=== PATIENT | male | born 1995 | race Two or more races ===

== ENCOUNTER 2021-01-09 10:55 | Outpatient (REF) | payer OTHER, SELFPAY ==
[2021-01-09 11:49] LABS: Hematocrit 41.9 % (42-52); Hemoglobin 14.4 g/dl (14.0-18.0); Mean Corpuscular HGB Conc 34.4 g/dl (31.0-36.0); Mean Corpuscular Hemoglobin 28.1 pg (27.0-33.0); Mean Corpuscular Volume 81.7 fL (80-98); Mean Platelet Volume 10.2 fL (9.4-12.4); Platelet Count 259 X10*3/uL (160-400); Red Blood Count 5.13 X10*6/uL (4.60-5.80); Red Cell Distribution Width 12.8 % (11.0-16.0); White Blood Count 5.1 X10*3/uL (4.8-10.8)
[2021-01-09 11:56] LABS: Estimated Average Glucose 105 mg/dL; Hemoglobin A1c % 5.3 %
[2021-01-09 12:34] LABS: TSH reflex Free T4 1.26 uIU/mL (0.32-4.0)
[2021-01-09 12:52] LABS: Alanine Aminotransferase 37 U/L (0-40); Albumin Level 4.5 g/dL (3.5-5.0); Alkaline Phosphatase 64 U/L (39-117); Anion Gap 12 (12-20); Aspartate Amino Transferase 20 U/L (5-37); Bilirubin Total 0.5 mg/dL (0.0-1.0); Blood Urea Nitrogen 15 mg/dL (9-16); Calcium 9.6 mg/dL (8.4-10.2); Carbon Dioxide 26 mmol/L (22-29); Chloride 105 mmol/L (96-108); Cholesterol 180 mg/dL; Estimated Glomerular Filt Rate > 60; Glucose Fasting 94 mg/dL (60-99); HDL Cholesterol 27 mg/dL; LDL Cholesterol Calculated 114 mg/dl; Sodium 138 mmol/L (135-145); Total Protein 7.2 g/dL (6.5-8.0); Triglycerides 196 mg/dL
== END 2021-01-09 10:56 | disposition home or self-care (01) ==
LOC: HO.LAB 10:55
PROVIDERS: PCP Physician Assistant; Visit Provider Physician Assistant
DX: I10 Essential (primary) hypertension (principal)
CPT/HCPCS: 36415; 80053; 80061; 83036; 84443; 85027

== ENCOUNTER 2021-12-07 23:47 | Emergency (ER) | payer OTHER, SELFPAY ==
--- NOTE | ~2021-12-07 | XR_ITS ---
EXAMINATION: RIGHT HAND 3 VIEWS AND RIGHT WRIST 4 VIEWS CLINICAL INFORMATION: Pain status post injury COMPARISON: None TECHNIQUE: As above FINDINGS: Joint spaces preserved. No deformity. First digit intact. Scaphoid intact. No focal lesion. XR/XR finger RT min 2V IMPRESSION: No fracture.
--- NOTE | ~2021-12-07 | XR_ITS ---
EXAMINATION: RIGHT HAND 3 VIEWS AND RIGHT WRIST 4 VIEWS CLINICAL INFORMATION: Pain status post injury COMPARISON: None TECHNIQUE: As above FINDINGS: Joint spaces preserved. No deformity. First digit intact. Scaphoid intact. No focal lesion. XR/XR wrist RT min 3V IMPRESSION: No fracture.
[2021-12-07 23:58] VITALS: BP 150/89; PULSE 53; RESP 18; TEMP 36.7; O2SAT 96; BMI 37.0
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
[2021-12-08] MEDS: Ibuprofen 600 MG TABLET PO (00:29)
== END 2021-12-08 01:01 | disposition home or self-care (01) ==
PROVIDERS: Emergency Provider Emergency Medicine Emergency Medical Services
DX: S63.501A Unspecified sprain of right wrist, initial encounter (principal); S63.601A Unspecified sprain of right thumb, initial encounter; Y33.XXXA Other specified events, undetermined intent, initial encounter; Y93.9 Activity, unspecified; Y92.9 Unspecified place or not applicable; Y99.0 Civilian activity done for income or pay; Z79.899 Other long term (current) drug therapy
CPT/HCPCS: 29130; 73110; 73140; 99283

== ENCOUNTER → 2021-12-12 10:55 | Outpatient (BNVA) | payer OTHER, SELFPAY | PROVIDERS: Visit Provider Internal Medicine | DX: Z02.89 Encounter for other administrative examinations (principal); S63.602A Unspecified sprain of left thumb, initial encounter; X58.XXXA Exposure to other specified factors, initial encounter | CPT/HCPCS: 99202 ==

== ENCOUNTER 2021-12-30 23:41 | Emergency (ER) | payer OTHER, SELFPAY ==
--- NOTE | ~2021-12-30 | XR_ITS ---
EXAMINATION: X-RAY RIGHT HAND/WRIST CLINICAL INFORMATION: Injury. COMPARISON: Radiograph of the right wrist dated from 12/08/2021. TECHNIQUE: 4 views of the right hand/wrist were obtained. XR/XR hand wrist RT FINDINGS/IMPRESSION: No acute fractures or malalignment. Normal appearance of the soft tissues. No unexpected radiopaque foreign bodies.
[2021-12-31 01:16] VITALS: BP 156/104; PULSE 58; RESP 16; TEMP 36.1; O2SAT 98; BMI 36.1
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
== END 2021-12-31 01:29 | disposition home or self-care (01) ==
LOC: HO.ED 12-31 01:20
PROVIDERS: Emergency Provider Emergency Medicine Emergency Medical Services; PCP Physician Assistant
DX: S63.601A Unspecified sprain of right thumb, initial encounter (principal); Y35.891A Legal intervention involving other specified means, law enforcement official injured, initial encounter; Y93.89 Activity, other specified; Y92.149 Unspecified place in prison as the place of occurrence of the external cause; Y99.0 Civilian activity done for income or pay
CPT/HCPCS: 73110; 73130; 99283

== ENCOUNTER 2022-01-08 10:15 | Outpatient (REF) | payer OTHER, SELFPAY ==
--- NOTE | ~2022-01-08 | XR_ITS ---
EXAMINATION: XR HAND, RIGHT CLINICAL INFORMATION: Pain in the right hand. COMPARISON: Radiograph of the right wrist dated from 12/31/2021. TECHNIQUE: 5 views of the right hand. FINDINGS: The bones and soft tissues are normal. No fracture. Alignment is anatomic. Joint spaces are maintained. No erosions or soft tissue calcifications. XR/XR hand RT min 3V IMPRESSION: Normal right hand. If symptoms persist, consider correlation with a different imaging modalities such as CT or MR.
== END 2022-01-08 10:16 | disposition home or self-care (01) ==
LOC: HO.HOSX 10:15
PROVIDERS: Visit Provider Orthopaedic Surgery
DX: M79.641 Pain in right hand (principal); S63.641A Sprain of metacarpophalangeal joint of right thumb, initial encounter; Y35.811A Legal intervention involving manhandling, law enforcement official injured, initial encounter; Y93.89 Activity, other specified; Y92.143 Cell of prison as the place of occurrence of the external cause; Y99.0 Civilian activity done for income or pay; I10 Essential (primary) hypertension
CPT/HCPCS: 73130; 99202

== ENCOUNTER → 2022-01-15 09:42 | Outpatient (BNVA) | payer OTHER, SELFPAY | PROVIDERS: PCP Physician Assistant; Visit Provider Orthopaedic Surgery | DX: S63.641D Sprain of metacarpophalangeal joint of right thumb, subsequent encounter (principal) | CPT/HCPCS: 29075; 99212 ==

== ENCOUNTER → 2022-01-27 10:06 | Outpatient (BNVA) | payer OTHER, SELFPAY | PROVIDERS: Visit Provider Physician Assistant | DX: S63.641A Sprain of metacarpophalangeal joint of right thumb, initial encounter (principal) | CPT/HCPCS: 29085; 99212 ==

== ENCOUNTER → 2022-02-07 11:57 | Outpatient (BNVA) | payer OTHER, SELFPAY | PROVIDERS: Visit Provider Orthopaedic Surgery | DX: S63.641D Sprain of metacarpophalangeal joint of right thumb, subsequent encounter (principal) | CPT/HCPCS: 99212 ==

== ENCOUNTER → 2022-02-27 10:55 | Outpatient (BNVA) | payer OTHER, SELFPAY | PROVIDERS: Visit Provider Physician Assistant | DX: S63.641A Sprain of metacarpophalangeal joint of right thumb, initial encounter (principal) | CPT/HCPCS: 99212 ==

== ENCOUNTER 2023-03-23 02:58 | Emergency (ER) | payer OTHER, SELFPAY ==
--- NOTE | ~2023-03-23 | XR_ITS ---
EXAMINATION: XR HAND, RIGHT CLINICAL INFORMATION: Right hand trauma COMPARISON: 01/08/2022 TECHNIQUE: PA, lateral, and oblique views of the right hand. FINDINGS: No fracture or dislocation. Alignment is anatomic. Joint spaces are maintained. No cortical disruption. The soft tissues are unremarkable. XR/XR hand RT min 3V IMPRESSION: No fracture or malalignment.
[2023-03-23 03:11] VITALS: BP 150/98; PULSE 73; RESP 16; TEMP 36.6; O2SAT 96; BMI 36.2
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
--- NOTE | 2023-03-23 04:36 | PC.NURSE ---
pt calm and cooperative. medart operator placed thumb spica splint. cms intact. pt ambulatory at discharge. pt provided with discharge packet and work note. pt verbalized understanding of discharge plan
== END 2023-03-23 04:39 | disposition home or self-care (01) ==
PROVIDERS: Emergency Provider Emergency Medicine; PCP Physician Assistant
DX: M65.4 Radial styloid tenosynovitis [de Quervain] (principal); M79.641 Pain in right hand
CPT/HCPCS: 73130; 99283; 99284

== ENCOUNTER 2023-03-31 10:18 | Outpatient (AMB) | payer OTHER, SELFPAY ==
[2023-03-31 10:31] VITALS: BMI 36.2
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
== END 2023-03-31 11:42 | disposition home or self-care (01) ==
PROVIDERS: PCP Physician Assistant; Visit Provider Orthopaedic Surgery
DX: S60.221A Contusion of right hand, initial encounter (principal)
CPT/HCPCS: 99213

== ENCOUNTER → 2023-03-31 10:18 | Outpatient (BNVA) | payer OTHER, SELFPAY | PROVIDERS: PCP Physician Assistant; Visit Provider Orthopaedic Surgery | DX: S60.221A Contusion of right hand, initial encounter (principal); X50.3XXA Overexertion from repetitive movements, initial encounter; Y93.89 Activity, other specified; Y92.149 Unspecified place in prison as the place of occurrence of the external cause; Y99.0 Civilian activity done for income or pay | CPT/HCPCS: 99212 ==

== ENCOUNTER 2023-05-04 10:00 | Outpatient (RCR) | payer OTHER, SELFPAY ==
--- NOTE | 2023-04-08 11:16 | MHC.OT.EP ---
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 He continued to have high pain into the next day and went to the ED 12/07/21 for assessment. He was placed in thumb spica orthosis and referred to occupational health and outpatient orthopedic services. He had been doing well for the past year, but returned to ED and outpatient ortho after reinjury to thumb 03/23/23. He has now been referred to OT for continued care of contusion to right thumb base. 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 Thank you once again for your referral.
--- NOTE | 2023-05-04 10:48 | MHC.OT.OP ---
[address] [phone] F: [phone] Occupational Therapy Progress Note Patient Name: Pierre Wood Diagnosis: Right hand contusion Date of Evaluation: 04/08/23 Treatments to Date: 5 Subjective: Its been ok but the pain comes back. Pain Score: 6 Pain Location: Right thenar area (constant pain) Objective Measures: Gross Grasp R 100 L 110 Thumb ROM MCP 50 IP 65 Status: Progressing Assessment: Pierre is about 6 weeks s/p contusion injury to right thumb. He has had prior injury to this thumb last year with full recovery, but now continues to have constant moderate pain in base of thumb, increases w/ heavier tasks. He has been wearing thumb spica but more recently is finding uncomfortable. Overall he has good use of thumb for FMC tasks and has good range and hand strength, primary limitation continues to be pain. We have progressed to light strengthening of hand and pt is mindful of limiting heavy work and avoiding activities that increase pain. Short Term Goals: Ind w/ activity modifications (met) Ind w/ orthosis wear (met) Ind w/ use of ice appropriately (met) Copy And Print Associate Goals: Ind w/ use of heat as needed as warm up for activity/range or for comfort (met) Gross grasp 80lb w/ minimal pain (met) Pt to report ease w/ opening containers and heavier tasks at home Progress to resisted thumb exercises (met) Frequency and Duration: The patient will be seen 2/x wk for 2 weeks Treatment Plan: Therapeutic Exercise Therapeutic Activity Home Exercise Program Splinting Patient Education Edema Control ADL Training Ultrasound Iontophoresis Paraffin Fluidotherapy MHP Cold Packs Joint Mobilization Soft Tissue Mobilization Kinesiotaping Dexamethasone Electronically Signed By: January Romero OTR/L GHASSAN
--- NOTE | 2023-06-09 11:29 | MHC.OT.DC ---
[address] [phone] F: [phone] Occupational Therapy Discharge Note Patient Name: Pierre Wood Provider: Dr Jessie Montalvo Diagnosis: Right hand contusion Date of Evaluation: 04/08/23 Date of Discharge: 06/09/23 Treatments to Date: 5 Cancellations to Date: 1 Discharge Status: Independent with HEP Discharge Summary: Pierre was referred to OT s/p contusion to right thumb. He was last seen in OT about one month ago and was noted to have continued pain in base of thumb, increasing w/ heavier work. He has been wearing thumb spica but more recently is finding uncomfortable. Overall he has good use of thumb for FMC tasks and has good range and hand strength, primary limitation continues to be pain. We have progressed to light strengthening of hand and pt is mindful of limiting heavy work and avoiding activities that increase pain. He was seen in ortho office and has been been to work, but has not followed up for any further OT visits. I recommend he cont thumb spica for thumb pain as needed and progress as able to range and strengthening with mindfulness of joint protection and activity modification. Electronically Signed By: REAGAN Michel/Chan FERRELL Reviewed/agree with student documentation: Yes Therapist: REAGAN Michel/Chan FERRELL Please Sign and return to therapist, thank you for your referral.
== END 2023-06-09 11:30 | disposition home or self-care (01) ==
LOC: HO.OT 10:00
PROVIDERS: PCP Physician Assistant; Visit Provider Orthopaedic Surgery
DX: S60.221D Contusion of right hand, subsequent encounter (principal)
CPT/HCPCS: 97033; 97110; 97140; 97165

== ENCOUNTER 2023-05-13 09:39 | Outpatient (AMB) | payer OTHER, SELFPAY ==
--- NOTE | 2023-05-13 09:43 | A.OFFVIS_ITS ---
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 Patient reports that he continues to have shocking pain that radiates into his palm. Complaints of numbness in his palm. He has completed OT. 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 He continues to have shocking pain in his thumb which radiates to his palm. He also c/o numbness in his palm. He is completed with occupational therapy. [facility] Medical History HTN (hypertension) Surgical History History of repair of ACL Family History Father No problems noted. Mother No problems noted. 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 No swelling. Mild tenderness over the radial styloid. Positive Cat?s. No pain with CMC grind. is able to make a full fist and fully extend all digits. NVI. Assessment & Plan Assessment & Plan (1) De Quervain's syndrome (tenosynovitis): Code(s): M65.4 - Radial styloid tenosynovitis [de Quervain] Plan An EMG/nerve conduction study has been ordered to further evaluate the etiology of his numbness. I did explain that if this is negative, it could be some irritation of nerve from his injury which would resolve with time. He will return to work on 05/19/23 full duty without restrictions and I will see him back once the EMG is complete. Orders: Orders NE electromyogram (EMG) Today R20.0 - Anesthesia of skin, R20.2 - Paresthesia of skin NE nerve conduction velocity Today R20.0 - Anesthesia of skin, R20.2 - Paresthesia of skin Patient Instructions: Scribed for Sangeeta Landa PA-C, by Hao Carter emergency medical tech, on 05/13/2023 at 9:45 AM EST. I, Sangeeta Landa PA-C, have personally reviewed and agree with the information entered by the scribe. Coding Level of Care Code Est Pt Level 3 (01819) Diagnoses De Quervain's syndrome (tenosynovitis) M65.4
[2023-05-13 09:46] VITALS: BMI 36.2
== END 2023-05-13 10:00 | disposition home or self-care (01) ==
PROVIDERS: PCP Physician Assistant; Visit Provider Physician Assistant
DX: M65.4 Radial styloid tenosynovitis [de Quervain] (principal)
CPT/HCPCS: 99213

== ENCOUNTER → 2023-05-13 09:39 | Outpatient (BNVA) | payer OTHER, SELFPAY | PROVIDERS: PCP Physician Assistant; Visit Provider Physician Assistant | DX: M65.4 Radial styloid tenosynovitis [de Quervain] (principal) | CPT/HCPCS: 99212 ==

== ENCOUNTER 2023-07-13 11:15 | Outpatient (AMB) | payer OTHER, SELFPAY ==
--- NOTE | 2023-07-13 11:18 | A.OFFPC_ITS ---
Vital Signs 07/13/23 11:19 Height 5 ft 9 in Weight 249 lb BMI 36.8 BP 150/100 H Blood Pressure Location Lt brachial Position Sitting Pulse 60 Pulse Source Pulse Oximeter Pulse Oximetry (%) 92 Oxygen Delivery Method Room Air Intake Visit Reasons: Discuss personal matters Advanced Registered Nurse Required: No Accompanied by: Self / Same As Patient Allergies No Known Allergies Allergy (Verified 07/13/23 11:21) Dental Screening Dental Screen Date: 07/13/23 Did you have a dental visit in the last 12 months?: Yes Did you have a dental problem in the last 6 months where you did not have access to dental care?: No Was dental information given to patient?: Patient has dentist HPI HPI Comments History of Present Illness Details 28-year-old male past medical history si gnificant for hypertension and obesity. Patient of Guillermo Max, last seen 2 years ago presents today for follow-up. Patient reports has not been on his blood pressure medication in over a year. Blood pressure elevated office today 150/100 patient denies any headaches or vision changes, or chest pain. Will re-initiate patient on his amlodipine 5 mg daily prescription sent to patient's pharmacy. Patient advised to follow low-salt diet. Patient also requesting to have routine STI screening completed, as well as routine blood work. Orders entered. Patient also reports around 8 years ago had a bout of erectile dysfunction and he was prescribed a medication for this that helped get him over the hump and he was able to perform. Patient reports he is now with a new female partner and he is unsure if it is just nervous but he is unable to get/sustain a reaction. Will send sildenafil to use as needed for this. [facility] Medical History HTN (hypertension) Surgical History History of repair of ACL Family History Father No problems noted. Mother No problems noted. 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 1. Little interest or pleasure in doing things: not at all 2. Feeling down, depressed, or hopeless: not at all 3. Trouble falling or staying asleep, or sleeping too much: not at all 4. Feeling tired or having little energy: not at all 5. Poor appetite or overeating: not at all 6. Feeling bad about yourself - or that you are a failure or have let yourself or your family down: not at all 7. Trouble concentrating on things, such as reading the newspaper or watching television: not at all 8. Moving or speaking so slowly that other people could have noticed. Or the opposite - being so fidgety or restless that you have been moving around a lot more than usual: not at all 9. Thoughts that you would be better off or of hurting yourself in some way: not at all Total score: 0 [id number] - PHQ-9 Billing: Yes Source: Developed by Drs. Roman Carroll, Marsha Ruffin, rBian Cash and colleagues, with an educational ramsey from [employer]. Thrive Questionnaire Date Thrive assessed: 07/13/23 I am a: Patient Within the past 12 months, did the food you bought not last and you didn't have the money to get more?: Never true Within the past 12 months, did you worry whether your food would run out before you got money to buy more?: Never true Do you have trouble paying for medicines?: No Do you have trouble getting transportation to medical appointments?: No Do you have trouble paying your heating and electricity bill?: No Do you have trouble taking care of your child, family member or friend?: No Do you have trouble with day-to-day activities such as bathing, preparing meals, shopping, managing finances, etc.?: No Are you currently unemployed and looking for a job?: No Are you interested in more education?: No Please select the resources that you would like help with: None Currently or been in a relationship where the following occur: no concerns reported AUDIT C Alcohol Use Questionnaire (AUDIT-C) 1. How often do you have a drink containing alcohol?: Monthly or less 2. How many drinks containing alcohol do you have on a typical day when you are drinking?: 3 or 4 3. How often do you have six or more drinks on one occasion?: Never Total Score: 2 OLLIE-7 AMB Questionnaire OLLIE-7 Date OLLIE - 7 assessed: 07/13/23 Feeling nervous, anxious, or on edge: 0 = Not at all Not being able to stop or control worryin = Not at all Worrying too much about different things: 0 = Not at all Trouble relaxin = Not at all Being so restless that it is hard to sit still: 0 = Not at all Becoming easily annoyed or irritable: 0 = Not at all Feeling afraid as if something awful might happen: 0 = Not at all Total OLLIE-7 score (0-4 normal; 5-9 mild; 10-14 moderate; 15-21 severe): 0 Source: Developed by Drs. Roman Carroll, Marsha Ruffin, Brian Cash and colleagues, with an educational ramsey from [employer]. OLLIE-7 Assessment Billing OLLIE-7 Assessment Tool: OLLIE-7 Assessment 34576 Review of Systems Const Denies chills, Denies fatigue, Denies fever(s) and Denies poor appetite Eyes Denies no additional complaints ENT Reports Normal hearing present Card Denies chest pain, Denies syncope, Denies rapid heart rate and Denies dyspnea Resp Denies cough and Denies dyspnea GI Denies change in stool character, Denies constipation, Denies diarrhea, Denies nausea and Denies vomiting Denies dysuria, Denies urinary frequency and Denies urinary urgency Neuro Reports Normal hearing present, Denies confusion and Denies syncope Psych Denies confusion Endo Denies fatigue Physical exam (Primary Care) Vital Signs: Last Vital Signs Pulse 60 07/13/23 11:19 BP 150/100 H 07/13/23 11:19 Pulse Ox 92 07/13/23 11:19 Oxygen Delivery Method Room Air 07/13/23 11:19 BMI result Body Mass Index 36.8 Tobacco/Smoking Status: Tobacco use Status Patient Tobacco Use Status Never used Tobacco 07/13/23 11:23 e-Cigarette/Vaping Use Never Used 07/13/23 11:23 PHQ-9: PHQ-9 Score PHQ-9: Total score 0 07/13/23 11:34 Thrive Assessment: Date of Thrive Assessment Date Thrive assessed 07/13/23 07/13/23 11:23 Currently or been in a relationship where the following occur: no concerns reported Const General: No confusion Orientation/consciousness: No confusion HENMT Head: Yes normocephalic and Yes atraumatic Eyes Conjunctivae: conjunctivae normal Chest Chest palpation & inspection: normal inspection of the chest Resp Effort & Inspection: normal respiratory effort Auscultation: clear to auscultation bilaterally, no crackles, no rhonchi and no wheezes Cardio Rate: regular rate Rhythm: regular rhythm Heart sounds: S1 normal heart sound present and S2 normal heart sound present GI Inspection: Yes normal to inspection Neuro General: No confusion Cranial nerves: Yes Normal hearing present Extrem General: No edema Assessment and Plan Assessment & Plan (1) HTN (hypertension): Code(s): I10 - Essential (primary) hypertension Qualifiers: Hypertension type: essential hypertension Qualified Code(s): I10 - Essential (primary) hypertension Plan: Amlodipine 5 mg daily sent to patient's pharmacy. Patient advised to follow low-salt diet exercise. Blood pressure goal less than 140/90. (2) Erectile dysfunction: Code(s): N52.9 - Male erectile dysfunction, unspecified Plan: Sildenafil 25mg prn sent to patients pharmacy. Plan Follow up in 4 months. Orders: Orders Complete Blood Count Auto Diff Today Z13.0 - Encounter for screening for diseases of the blood and blood-forming organs and certain disorders involving the immune mechanism Comprehensive [place]. Panel Fast Today Z13.1 - Encounter for screening for diabetes mellitus Lipid Panel Today Z13.220 - Encounter for screening for lipoid disorders TSH reflex Free T4 Today Z13.29 - Encounter for screening for other suspected endocrine disorder Syphilis Screen Today Z11.3 - Encounter for screening for infections with a predominantly sexual mode of transmission Microalbumin, Random (w Creat) Today I10 - Essential (primary) hypertension Hepatitis B,C Profile Today Z11.3 - Encounter for screening for infections with a predominantly sexual mode of transmission CT NG by PCR Today Z11.8 - Encounter for screening for other infectious and parasitic diseases HIV Ab/Ag Today Z11.3 - Encounter for screening for infections with a predominantly sexual mode of transmission Medications: New sildenafil administer 30 minutes to 4 hours before activity 25 mg PO DAILY PRN 10 tabs 0RF sexual activity Refilled amlodipine 5 mg PO DAILY 30 days 30 tabs 3RF I10 - Essential (primary) hypertension Coding Level of Care Code Est Pt Level 3 (42538) Diagnoses Essential hypertension I10 Hypertension type: essential hypertension Erectile dysfunction N52.9 Additional Codes OLLIE-7 Assessment Billing - OLLIE-7 Assessment Tool: OLLIE-7 Assessment 02519 ([id number])
[2023-07-13 11:19] VITALS: BP 150/100; PULSE 60; O2SAT 92; BMI 36.8
== END 2023-07-13 11:43 | disposition home or self-care (01) ==
PROVIDERS: PCP Physician Assistant; Visit Provider Nurse Practitioner Family
DX: I10 Essential (primary) hypertension (principal); N52.9 Male erectile dysfunction, unspecified; Z68.36 Body mass index [BMI] 36.0-36.9, adult; E66.09 Other obesity due to excess calories
CPT/HCPCS: 99213

== ENCOUNTER 2024-05-10 14:31 | Outpatient (AMB) | payer OTHER, SELFPAY ==
--- NOTE | 2024-05-10 14:26 | A.OFFPC_ITS ---
Intake Visit Reasons: BP CHECK Allergies No Known Allergies Allergy (Verified 07/13/23 11:21) Dental Screening Dental Screen Date: 07/13/23 [facility] Medical History HTN (hypertension) Surgical History History of repair of ACL Family History Father No problems noted. Mother No problems noted. 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 Roman Carroll, Marsha Ruffin, Brian Cash and colleagues, with an educational ramsey from [employer]. Physical exam (Primary Care) Tobacco/Smoking Status: Tobacco use Status Patient Tobacco Use Status Never used Tobacco 07/13/23 11:23 e-Cigarette/Vaping Use Never Used 07/13/23 11:23 Thrive Assessment: Date of Thrive Assessment Date Thrive assessed 07/13/23 07/13/23 11:23 Coding
--- NOTE | 2024-05-10 14:41 | MHC.PC.OV ---
Vital Signs 05/10/24 14:47 Height 5 ft 9 in Weight 257 lb BMI 37.9 BP 150/112 H Blood Pressure Location Lt brachial Position Sitting Pulse 55 Pulse Source Pulse Oximeter Pulse Oximetry (%) 94 Oxygen Delivery Method Room Air Intake Visit Reasons: OVERDUE PE/BP Check Intake Note: Pt here for annual exam and blood pressure check. Pt has not been with PCP in over 3 years. 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 Accompanied by: Self / Same As Patient Allergies No Known Allergies Allergy (Verified 05/10/24 15:04) Medication List - Last Reconciled 05/10/24 by Bharat Max PA-C amlodipine 5 mg PO DAILY 30 days ibuprofen 400 mg PO Q6H PRN miscellaneous medical supply (Blood Pressure Cuff) As directed sildenafil 25 mg PO DAILY PRN Tobacco use date assessed: 05/10/24 Dental Screening Dental Screen Date: 05/10/24 Did you have a dental visit in the last 12 months?: Yes Did you have a dental problem in the last 6 months where you did not have access to dental care?: No Was dental information given to patient?: Patient has dentist HPI OVERDUE PE/BP Check HPI Details Patient is a 29-year-old male here today for an annual physical. Patient has a past medical history significant for hypertension and obesity. .. Hypertension: Patient's blood pressure elevated today in office. He admits to taking his amlodipine 5 mg on a daily basis. He denies any chest pain, headaches, dizziness . He is not monitoring his blood pressure at home as he felt a fine. PLAN: Will increase his amlodipine to maximal dose of 10 mg and also add on hydrochlorothiazide 12.5 for better blood pressure control. He will work on low-sodium diet and weight reduction to also reduce his blood pressure .. Obesity: He does understand his BMI is over 35 and will try to work on being more physically active and adjusting to better eating habits to reduce his weight. Vaccines: Up-to-date with COVID vaccine, needs tetanus vaccine and flu vaccine. 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 Mother No problems noted. 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 1. Little interest or pleasure in doing things: not at all 2. Feeling down, depressed, or hopeless: not at all 3. Trouble falling or staying asleep, or sleeping too much: not at all 4. Feeling tired or having little energy: not at all 5. Poor appetite or overeating: not at all 6. Feeling bad about yourself - or that you are a failure or have let yourself or your family down: not at all 7. Trouble concentrating on things, such as reading the newspaper or watching television: not at all 8. Moving or speaking so slowly that other people could have noticed. Or the opposite - being so fidgety or restless that you have been moving around a lot more than usual: not at all 9. Thoughts that you would be better off or of hurting yourself in some way: not at all Total score: 0 Depression Screening Interpretation: Negative Depression Screening Done: Yes 00482 - PHQ-9 Billing: Yes Source: Developed by Drs. Roman Carroll, Marsha Ruffin, Brian Cash and colleagues, with an educational ramsey from [employer]. Thrive Questionnaire Date Thrive assessed: 05/10/24 I am a: Patient What is your living situation today?: I have a steady place to live Within the past 12 months, did the food you bought not last and you didn't have the money to get more?: Never true Within the past 12 months, did you worry whether your food would run out before you got money to buy more?: Never true Do you have trouble paying for medicines?: No Do you have trouble getting transportation to medical appointments?: No Do you have trouble paying your heating and electricity bill?: No Do you have trouble taking care of your child, family member or friend?: No Do you have trouble with day-to-day activities such as bathing, preparing meals, shopping, managing finances, etc.?: No Are you currently unemployed and looking for a job?: No Are you interested in more education?: No Please select the resources that you would like help with: None Currently or been in a relationship where the following occur: No concerns reported THRIVE Score: 0 AUDIT C Alcohol Use Questionnaire (AUDIT-C) 1. How often do you have a drink containing alcohol?: Monthly or less 2. How many drinks containing alcohol do you have on a typical day when you are drinking?: 3 or 4 3. How often do you have six or more drinks on one occasion?: Never Total Score: 2 OLLIE-7 AMB Questionnaire OLLIE-7 Date OLLIE - 7 assessed: 05/10/24 Feeling nervous, anxious, or on edge: 0 = Not at all Not being able to stop or control worryin = Not at all Worrying too much about different things: 0 = Not at all Trouble relaxin = Not at all Being so restless that it is hard to sit still: 0 = Not at all Becoming easily annoyed or irritable: 0 = Not at all Feeling afraid as if something awful might happen: 0 = Not at all Total OLLIE-7 score (0-4 normal; 5-9 mild; 10-14 moderate; 15-21 severe): 0 Source: Developed by Drs. Roman Carroll, Marsha Ruffin, Brian Cash and colleagues, with an educational ramsey from [employer]. OLLIE-7 Assessment Billing OLLIE-7 Assessment Tool: OLLIE-7 Assessment 01629 Review of Systems Const Denies body aches, Denies chills, Denies excessive sweating, Denies fatigue, Denies fever(s) and Denies headache(s) Eyes Denies blurry vision ENT Denies dysphagia, Denies vertigo, Denies dizziness, Denies headache(s), Denies hearing loss and Denies tinnitus Card Denies chest pain, Denies chest pain with activity, Denies syncope, Denies irregular heart rhythm and Denies dyspnea Resp Denies chest congestion, Denies cough, Denies hemoptysis, Denies dyspnea and Denies wheezing GI Denies abdominal pain, Denies melena, Denies hematochezia, Denies coffee ground emesis, Denies dysphagia, Denies diarrhea, Denies nausea and Denies vomiting Denies difficulty urinating, Denies dysuria, Denies urinary frequency, Denies urinary hesitancy and Denies urinary urgency Musc Denies arthralgias, Denies limited range of motion, Denies muscle cramps and Denies muscle weakness Skin/Breast Denies rash and Denies skin ulcer Neuro Denies Abnormal speech present, Denies confusion, Denies vertigo, Denies dizziness, Denies syncope, Denies headache(s), Denies memory loss and Denies seizure-like activity Psych Denies anxiety, Denies confusion, Denies depression, Denies memory loss, Denies panic attacks and Denies paranoia Endo Denies excessive sweating, Denies fatigue, Denies flushing, Denies polydipsia and Denies polyuria Aller/Immun Denies wheezing Physical exam (Primary Care) Vital Signs: Last Vital Signs Pulse 55 05/10/24 14:47 BP 150/112 H 05/10/24 14:47 Pulse Ox 94 05/10/24 14:47 Oxygen Delivery Method Room Air 05/10/24 14:47 BMI result Body Mass Index 37.9 Tobacco/Smoking Status: Tobacco use Status Tobacco use date assessed 05/10/24 05/10/24 14:52 Patient Tobacco Use Status Never used Tobacco 05/10/24 15:03 e-Cigarette/Vaping Use Never Used 05/10/24 15:03 PHQ-9: PHQ-9 Score PHQ-9: Total score 0 05/10/24 15:07 Depression Screening Interpretation: Negative Thrive Assessment: Date of Thrive Assessment Date Thrive assessed 05/10/24 05/10/24 14:52 Currently or been in a relationship where the following occur: No concerns reported Const General: cooperative, comfortable, no acute distress, alert and awake; No confusion Orientation/consciousness: oriented to person, oriented to place, patient oriented x3 and No confusion HENMT Head: Yes normocephalic Ears: external ears normal and TM's normal bilaterally Face and sinus: No sinus tenderness Mouth: Normal oral and palatal mucosa present and tongue normal Teeth and gingiva: dentition normal and gingiva normal Throat: Yes posterior oropharynx normal, Yes tonsils normal and Yes uvula midline Eyes Conjunctivae: conjunctivae normal Sclerae: sclerae normal Pupils: Equal, round and reactive pupils present EOM: EOMs intact bilaterally Direct Ophthalmoscopy: No no photophobia Neck Neck: Yes no lymphadenopathy, No tender and Yes no JVD Thyroid: Thyroid normal Carotids: no bruits Chest Chest palpation & inspection: no tenderness Resp Effort & Inspection: normal respiratory effort, no audible wheezes, not labored and no stridor Auscultation: no crackles, no rales, no rhonchi and no wheezes Cardio Jugular venous distension: no JVD Rate: regular rate, not bradycardic and not tachycardic Rhythm: regular rhythm Bruits: no carotid bruits Peripheral pulses: Peripheral pulses 2+ throughout GI Inspection: Yes normal to inspection, No abdominal wall ecchymosis and No visible herniation Palpation (GI): Soft to palpation, nontender, no guarding, not rigid and No hepatosplenomegaly present Auscultation: normoactive bowel sounds General: Yes no CVA tenderness Back/Spine/Pelvis Back: no CVA tenderness and No back tenderness Cervical Spine: cervical ROM normal Thoracic/Lumbar Spine: thoracic and lumbar spine normal to inspection, straight leg raise negative bilaterally, No thoraco-lumbar ROM limited and No lumbar spinal tenderness Skin Lesions: no lesions Rashes: no rashes Wounds: no wounds Neuro General: oriented to person, oriented to place, patient oriented x3, CN's II-XI intact bilaterally and No confusion Cranial nerves: Yes Equal, round and reactive pupils present and Yes Normal accommodation reflex present Cognition (Neuro): normal cognition Speech: No Abnormal speech present Gait exam (Neuro): Normal gait present Motor exam (neuro): 5/5 motor strength present throughout Extrem Right upper extremity: full ROM; no cyanosis Left upper extremity: full ROM; no cyanosis Right lower extremity: no edema Left lower extremity: no edema Psych Appearance: grossly normal Mental Status: mental status grossly normal Affect: normal affect Attitude: cooperative Thought process: Normal thought process present Coding Level of Care Code Est Pt Prev Care 18-39y(40325) Diagnoses Annual physical exam Z00.00 Essential hypertension I10 Hypertension type: essential hypertension Screening for diabetes mellitus (DM) Z13.1 Class 2 obesity E66.812 Additional Codes OLLIE-7 Assessment Billing - OLLIE-7 Assessment Tool: OLLIE-7 Assessment 34974 ([id number]) Assessment & Plan Assessment & Plan (1) Annual physical exam: Code(s): Z00.00 - Encounter for general adult medical examination without abnormal findings Category: Medical Plan: As per HPI (2) HTN (hypertension): Code(s): I10 - Essential (primary) hypertension Category: Medical Qualifiers: Hypertension type: essential hypertension Qualified Code(s): I10 - Essential (primary) hypertension Plan: Patient's blood pressure elevated today in office. Has been consistent with amlodipine 5 mg. Will increase his amlodipine dose to 10 mg for better blood pressure control. Will also add on hydrochlorothiazide 12.5 mg. Supply patient with paper Rx for blood pressure cuff to do home blood pressure monitoring (3) Screening for diabetes mellitus (DM): Code(s): Z13.1 - Encounter for screening for diabetes mellitus Category: Medical Plan: As per HPI (4) Class 2 obesity: Code(s): E66.812 - Obesity, class 2 Category: Medical Plan: Patient does understand his BMI is over 35 and will work on being more physically active and adapting to better eating habits to reduce his weight. Orders: Orders Comprehensive [place]. Panel Fast 05/10/24 Z13.1 - Encounter for screening for diabetes mellitus Microalbumin, Random (w Creat) 05/10/24 I10 - Essential (primary) hypertension Medications: New amlodipine 10 mg PO DAILY 30 tabs 3RF 30 days I10 - Essential (primary) hypertension hydrochlorothiazide 12.5 mg PO DAILY 30 tabs 1RF 30 days I10 - Essential (primary) hypertension blood pressure monitor Testing once a day as needed 1 ea 0RF I10 - Essential (primary) hypertension Patient Instructions: Goal: Blood pressure to be below 140/90 Barriers: Adherence to physical activity and healthy eating habits
[2024-05-10 14:47] VITALS: BP 150/112; PULSE 55; O2SAT 94; BMI 37.9
== END 2024-05-10 15:19 | disposition home or self-care (01) ==
PROVIDERS: PCP Physician Assistant; Visit Provider Physician Assistant
DX: Z00.00 Encounter for general adult medical examination without abnormal findings (principal); I10 Essential (primary) hypertension; Z13.1 Encounter for screening for diabetes mellitus; E66.812 Obesity, class 2

== ENCOUNTER → 2024-05-10 14:31 | Outpatient (BNVA) | payer OTHER, SELFPAY | PROVIDERS: PCP Physician Assistant; Visit Provider Physician Assistant | DX: Z00.00 Encounter for general adult medical examination without abnormal findings (principal); I10 Essential (primary) hypertension; E66.812 Obesity, class 2; Z68.37 Body mass index [BMI] 37.0-37.9, adult; Z79.899 Other long term (current) drug therapy | CPT/HCPCS: 96127 ==

== ENCOUNTER 2024-06-21 14:02 | Outpatient (AMB) | payer OTHER, SELFPAY ==
[2024-06-21 14:23] VITALS: BP 138/92; PULSE 62; O2SAT 96; BMI 38.4
--- NOTE | 2024-06-21 14:23 | MHC.PC.OV ---
Vital Signs 06/21/24 14:23 Height 5 ft 9 in Weight 260 lb BMI 38.4 BP 138/92 H Blood Pressure Location Lt brachial Position Sitting Pulse 62 Pulse Source Pulse Oximeter Pulse Oximetry (%) 96 Oxygen Delivery Method Room Air Intake Visit Reasons: 6 weeks f/u Intake Note: Patient is here to follow up on HTN. 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 At last visit we noted elevated blood pressure readings and increase his amlodipine to 10 mg and added on hydrochlorothiazide for better blood pressure control. Blood pressure today in office has improved though still slightly borderline high. 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 Mother No problems noted. 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 Roman Carroll, Marsha Ruffin, Brian Cash and colleagues, with an educational ramsey from [employer]. Review of Systems Const Denies headache(s) Eyes Denies loss of vision ENT Denies vertigo, Denies dizziness, Denies headache(s) and Denies sore throat Card Denies chest pain, Denies leg edema and Denies lightheadedness Resp Denies cough, Denies hemoptysis and Denies wheezing GI Denies abdominal pain, Denies melena, Denies constipation, Denies diarrhea and Denies vomiting Denies dysuria, Denies urinary frequency and Denies urinary urgency Musc Denies arthralgias, Denies joint swelling, Denies numbness and Denies tingling Neuro Denies Abnormal speech present, Denies behavioral changes, Denies vertigo, Denies dizziness, Denies headache(s), Denies loss of vision, Denies memory loss, Denies numbness and Denies tingling Psych Denies anxiety, Denies behavioral changes, Denies depression, Denies memory loss and Denies panic attacks Placido/Lymph Denies easy bleeding and Denies easy bruising Aller/Immun Denies wheezing Physical exam (Primary Care) Vital Signs: Last Vital Signs Pulse 62 06/21/24 14:23 BP 138/92 H 06/21/24 14:23 Pulse Ox 96 06/21/24 14:23 Oxygen Delivery Method Room Air 06/21/24 14:23 BMI result Body Mass Index 38.4 Tobacco/Smoking Status: Tobacco use Status Tobacco use date assessed 05/10/24 06/21/24 14:24 Patient Tobacco Use Status Never used Tobacco 06/21/24 14:24 e-Cigarette/Vaping Use Never Used 06/21/24 14:24 Thrive Assessment: Date of Thrive Assessment Date Thrive assessed 05/10/24 06/21/24 14:24 Const General: healthy appearing, no acute distress, alert and awake Nutritional Appearance: well nourished Orientation/consciousness: oriented to person, oriented to place and oriented to time HENMT Ears: TM's normal bilaterally General nose exam: Normal nasal mucous membranes and turbinates present Eyes Conjunctivae: conjunctivae normal Sclerae: sclerae normal Pupils: Equal, round and reactive pupils present Neck Neck: Yes no lymphadenopathy and Yes no JVD Thyroid: Thyroid normal Carotids: no bruits Resp Effort & Inspection: normal respiratory effort and not tachypneic Auscultation: no crackles, no rales, no rhonchi and no wheezes Cardio Rate: regular rate Rhythm: regular rhythm Heart sounds: no murmurs and normal S1 and S2 GI Palpation (GI): Soft to palpation, nontender, no hepatomegaly and no splenomegaly Auscultation: normal bowel sounds Skin General skin exam: no rashes or lesions noted and dry skin Neuro General: oriented to person, oriented to place and oriented to time Cranial nerves: Yes Equal, round and reactive pupils present Speech: No Abnormal speech present Gait exam (Neuro): Normal gait present Motor exam (neuro): no tremor noted Extrem Right upper extremity: full ROM Left upper extremity: full ROM Right lower extremity: full ROM; no edema Left lower extremity: full ROM; no edema Psych Mental Status: mental status grossly normal Speech and movement: Normal speech and movement present Affect: normal affect Attitude: cooperative Thought process: Normal thought process present Office Procedures Flu Questionnaire Does the patient have a severe egg allergy?: No Immunizations Fluarix Triv [id number] (PF) 45 mcg (15 mcg x 3)/0.5 mL IM syringe Performing Provider: Bharat Max PA-C [facility] Documented (not given) by: MELANIE Gallagher on 06/21/24 14:25 Reason Not Given: Patient Refused Coding Level of Care Code Est Pt Level 3 (19484) Diagnoses Essential hypertension I10 Hypertension type: essential hypertension Assessment & Plan Assessment & Plan (1) HTN (hypertension): Code(s): I10 - Essential (primary) hypertension Category: Medical Qualifiers: Hypertension type: essential hypertension Qualified Code(s): I10 - Essential (primary) hypertension Plan: Patient's blood pressure improved though still remains elevated. He remains asymptomatic . Will increase his hydrochlorothiazide for better blood pressure control. He will continue working on lifestyle and dietary modifications. Goal blood pressure is to be below 140/90 Orders: Orders Influenza [id number] Immunization Today Z23 - Encounter for immunization Medications: New hydrochlorothiazide 25 mg PO DAILY 30 days 30 tabs 2RF I10 - Essential (primary) hypertension Discontinued hydrochlorothiazide Discontinued Reason: Doctor's Order 12.5 mg PO DAILY 30 days 30 tabs 1RF I10 - Essential (primary) hypertension
== END 2024-06-21 14:40 | disposition home or self-care (01) ==
PROVIDERS: PCP Physician Assistant; Visit Provider Physician Assistant
DX: Z23 Encounter for immunization (principal); I10 Essential (primary) hypertension

== ENCOUNTER → 2024-06-21 14:02 | Outpatient (BNVA) | payer OTHER, SELFPAY | PROVIDERS: PCP Physician Assistant; Visit Provider Physician Assistant | DX: I10 Essential (primary) hypertension (principal); Z79.899 Other long term (current) drug therapy; Z28.21 Immunization not carried out because of patient refusal | CPT/HCPCS: 90471 ==

== ENCOUNTER 2024-10-06 14:56 | Outpatient (AMB) | payer OTHER, SELFPAY ==
--- NOTE | 2024-10-06 15:01 | A.OFFPC_ITS ---
Vital Signs 10/06/24 15:05 Height 5 ft 9 in Weight 250 lb BMI 36.9 BP 140/98 H Blood Pressure Location Lt brachial Position Sitting Pulse 70 Pulse Source Pulse Oximeter Pulse Oximetry (%) 96 Oxygen Delivery Method Room Air Intake Visit Reasons: f/u HTN Intake Note: Patient here for a follow up HTN Treatment Manager Required: No Accompanied by: Self / Same As Patient Allergies No Known Allergies Allergy (Verified 10/06/24 15:10) Medication List - Last Reconciled 10/06/24 by Bharat Max PA-C amlodipine 10 mg PO DAILY blood pressure monitor Testing once a day as needed hydrochlorothiazide 25 mg PO DAILY 90 days ibuprofen 400 mg PO Q6H PRN miscellaneous medical supply (Blood Pressure Cuff) As directed Tobacco use date assessed: 10/06/24 Dental Screening Dental Screen Date: 10/06/24 Did you have a dental visit in the last 12 months?: Yes Did you have a dental problem in the last 6 months where you did not have access to dental care?: No Was dental information given to patient?: Patient has dentist HPI f/u HTN HPI Details Patient is a 29-year-old male here today for follow-up visit. We has been working with him on his high blood pressure. He has been continuing on amlodipine 10 mg and hydrochlorothiazide 25 mg which has been up titrated to highest doses. Unfortunately blood pressure remains elevated today in office. He has been checking his blood pressure at home and reports 120s to 130 systolic.. He has been able to lose 10 lb since last office visit. 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 Mother No problems noted. 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 1. Little interest or pleasure in doing things: not at all 2. Feeling down, depressed, or hopeless: not at all 3. Trouble falling or staying asleep, or sleeping too much: not at all 4. Feeling tired or having little energy: not at all 5. Poor appetite or overeating: not at all 6. Feeling bad about yourself - or that you are a failure or have let yourself or your family down: not at all 7. Trouble concentrating on things, such as reading the newspaper or watching television: not at all 8. Moving or speaking so slowly that other people could have noticed. Or the opposite - being so fidgety or restless that you have been moving around a lot more than usual: not at all 9. Thoughts that you would be better off or of hurting yourself in some way: not at all Total score: 0 Depression Screening Interpretation: Negative Depression Screening Done: Yes Source: Developed by Drs. Roman Carroll, Marsha Ruffin, Brian Cash and colleagues, with an educational ramsey from [employer]. Thrive Questionnaire Date Thrive assessed: 10/06/24 I am a: Patient What is your living situation today?: I have a steady place to live Within the past 12 months, did the food you bought not last and you didn't have the money to get more?: Never true Within the past 12 months, did you worry whether your food would run out before you got money to buy more?: Never true Do you have trouble paying for medicines?: No Do you have trouble getting transportation to medical appointments?: No Do you have trouble paying your heating and electricity bill?: No Do you have trouble taking care of your child, family member or friend?: No Do you have trouble with day-to-day activities such as bathing, preparing meals, shopping, managing finances, etc.?: No Are you currently unemployed and looking for a job?: No Are you interested in more education?: No Please select the resources that you would like help with: None Currently or been in a relationship where the following occur: No concerns repo rted THRIVE Score: 0 AUDIT C Alcohol Use Questionnaire (AUDIT-C) 1. How often do you have a drink containing alcohol?: Monthly or less 2. How many drinks containing alcohol do you have on a typical day when you are drinking?: 1 or 2 3. How often do you have six or more drinks on one occasion?: Never Total Score: 1 OLLIE-7 AMB Questionnaire OLLIE-7 Date OLLIE - 7 assessed: 10/06/24 Feeling nervous, anxious, or on edge: 0 = Not at all Not being able to stop or control worryin = Not at all Worrying too much about different things: 0 = Not at all Trouble relaxin = Not at all Being so restless that it is hard to sit still: 0 = Not at all Becoming easily annoyed or irritable: 0 = Not at all Feeling afraid as if something awful might happen: 0 = Not at all Total OLLIE-7 score (0-4 normal; 5-9 mild; 10-14 moderate; 15-21 severe): 0 Source: Developed by Drs. Roman Carroll, Marsha Ruffin, Brian Cash and colleagues, with an educational ramsey from [employer]. Review of Systems Const Denies headache(s) Eyes Denies loss of vision ENT Denies vertigo, Denies dizziness, Denies headache(s) and Denies sore throat Card Denies chest pain, Denies leg edema and Denies lightheadedness Resp Denies cough, Denies hemoptysis and Denies wheezing GI Denies abdominal pain, Denies melena, Denies constipation, Denies diarrhea and Denies vomiting Denies dysuria, Denies urinary frequency and Denies urinary urgency Musc Denies arthralgias, Denies joint swelling, Denies numbness and Denies tingling Neuro Denies Abnormal speech present, Denies behavioral changes, Denies vertigo, Denies dizziness, Denies headache(s), Denies loss of vision, Denies memory loss, Denies numbness and Denies tingling Psych Denies anxiety, Denies behavioral changes, Denies depression, Denies memory loss and Denies panic attacks Placido/Lymph Denies easy bleeding and Denies easy bruising Aller/Immun Denies wheezing Physical exam (Primary Care) Vital Signs: Last Vital Signs Pulse 70 10/06/24 15:05 BP 140/98 H 10/06/24 15:05 Pulse Ox 96 10/06/24 15:05 Oxygen Delivery Method Room Air 10/06/24 15:05 BMI result Body Mass Index 36.9 BMI Assessment/Plan discussion: High BMI High, discussed plan: lifestyle, weight reduction, dietary and physical activity Tobacco/Smoking Status: Tobacco use Status Tobacco use date assessed 10/06/24 10/06/24 15:09 Patient Tobacco Use Status Never used Tobacco 10/06/24 15:09 e-Cigarette/Vaping Use Never Used 10/06/24 15:09 PHQ-9: PHQ-9 Score PHQ-9: Total score 0 10/06/24 15:13 Depression Screening Interpretation: Negative Thrive Assessment: Date of Thrive Assessment Date Thrive assessed 10/06/24 10/06/24 15:09 Currently or been in a relationship where the following occur: No concerns reported Const General: healthy appearing, no acute distress, alert and awake Nutritional Appearance: well nourished Orientation/consciousness: oriented to person, oriented to place and oriented to time HENMT Ears: TM's normal bilaterally General nose exam: Normal nasal mucous membranes and turbinates present Eyes Conjunctivae: conjunctivae normal Sclerae: sclerae normal Pupils: Equal, round and reactive pupils present Neck Neck: Yes no lymphadenopathy and Yes no JVD Thyroid: Thyroid normal Carotids: no bruits Resp Effort & Inspection: normal respiratory effort and not tachypneic Auscultation: no crackles, no rales, no rhonchi and no wheezes Cardio Rate: regular rate Rhythm: regular rhythm Heart sounds: no murmurs and normal S1 and S2 GI Palpation (GI): Soft to palpation, nontender, no hepatomegaly and no splenomegaly Auscultation: normal bowel sounds Skin General skin exam: no rashes or lesions noted and dry skin Neuro General: oriented to person, oriented to place and oriented to time Cranial nerves: Yes Equal, round and reactive pupils present Speech: No Abnormal speech present Gait exam (Neuro): Normal gait present Motor exam (neuro): no tremor noted Extrem Right upper extremity: full ROM Left upper extremity: full ROM Right lower extremity: full ROM; no edema Left lower extremity: full ROM; no edema Psych Mental Status: mental status grossly normal Speech and movement: Normal speech and movement present Affect: normal affect Attitude: cooperative Thought process: Normal thought process present Coding Level of Care Code Est Pt Level 4 (82942) Diagnoses Essential hypertension I10 Hypertension type: essential hypertension Class 2 obesity E66.812 Assessment & Plan Assessment & Plan (1) HTN (hypertension): Code(s): I10 - Essential (primary) hypertension Category: Medical Qualifiers: Hypertension type: essential hypertension Qualified Code(s): I10 - Essential (primary) hypertension Plan: Patient's blood pressure improved though still remains elevated. He remains asymptomatic . He reports that home blood pressures 120s to 130 systolic. He reports he feels well He does report some photosensitivity and needing to squint for better vision and wonders if this is a side effect medication. Seems due to literature hydrochlorothiazide does have a photosensitivity reaction. He will continue working on lifestyle and dietary modifications. Goal blood pressure is to be below 140/90 (2) Class 2 obesity: Code(s): E66.812 - Obesity, class 2 Category: Medical Plan: Patient does understand his BMI is over 35 and will work on being more physically active and adapting to better eating habits to reduce his weight. Orders: Orders Microalbumin, Random (w Creat) 10/06/24 I10 - Essential (primary) hypertension Complete Blood Count no Diff 10/06/24 I10 - Essential (primary) hypertension
[2024-10-06 15:05] VITALS: BP 140/98; PULSE 70; O2SAT 96; BMI 36.9
== END 2024-10-06 15:21 | disposition home or self-care (01) ==
PROVIDERS: PCP Physician Assistant; Visit Provider Physician Assistant
DX: I10 Essential (primary) hypertension (principal); E66.812 Obesity, class 2; Z68.36 Body mass index [BMI] 36.0-36.9, adult

== ENCOUNTER → 2024-10-06 14:56 | Outpatient (BNVA) | payer OTHER, SELFPAY | PROVIDERS: PCP Physician Assistant; Visit Provider Physician Assistant ==

== ENCOUNTER 2025-05-15 14:26 | Outpatient (AMB) | payer OTHER, SELFPAY ==
--- NOTE | 2025-05-15 14:35 | MHC.PC.OV ---
Vital Signs 05/15/25 14:36 Height 5 ft 9 in Weight 267 lb BMI 39.4 BP 120/78 Blood Pressure Location Lt brachial Position Sitting Pulse 64 Pulse Source Pulse Oximeter Temp 97.3 F Temp Source Temporal Artery Scan Pulse Oximetry (%) 98 Oxygen Delivery Method Room Air Intake Visit Reasons: Annual Exam Intake Note: Patient is here today for a physical. Greens Cutter Required: No Veterans' Coordinator: Not Required per policy Accompanied by: Self / Same As Patient Allergies No Known Allergies Allergy (Verified 05/15/25 14:50) Medication List - Last Reconciled 05/15/25 by Bharat Max PA-C amlodipine 10 mg PO DAILY blood pressure monitor Testing once a day as needed hydrochlorothiazide 25 mg PO DAILY 90 days miscellaneous medical supply (Blood Pressure Cuff) As directed Tobacco use date assessed: 05/15/25 Dental Screening Dental Screen Date: 10/06/24 [facility] Annual Exam HPI Details Patient is a 30-year-old male here today an annual physical . We has been working with him on his high blood pressure. He has been continuing on amlodipine 10 mg and hydrochlorothiazide 25 mg which has been up titrated to highest doses. Blood pressure today in office acceptable. He has been checking his blood pressure at home and reports 120s to 130 systolic.. Class 2 obesity: Unfortunately has gained weight since last office visit. He reports he has been more physically active going to the gym several times a week. Has been trying to follow up better diet and reducing his portions though still is not able to lose much weight. 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 Mother No problems noted. 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 1. Little interest or pleasure in doing things: not at all 2. Feeling down, depressed, or hopeless: not at all 3. Trouble falling or staying asleep, or sleeping too much: not at all 4. Feeling tired or having little energy: not at all 5. Poor appetite or overeating: not at all 6. Feeling bad about yourself - or that you are a failure or have let yourself or your family down: not at all 7. Trouble concentrating on things, such as reading the newspaper or watching television: not at all 8. Moving or speaking so slowly that other people could have noticed. Or the opposite - being so fidgety or restless that you have been moving around a lot more than usual: not at all 9. Thoughts that you would be better off or of hurting yourself in some way: not at all Total score: 0 Depression Screening Interpretation: Negative Depression Screening Done: Yes 43246 - PHQ-9 Billing: Yes Source: Developed by Drs. Roman Carroll, Marsha Ruffin, Brian Cash and colleagues, with an educational ramsey from [employer]. Thrive Questionnaire Date Thrive assessed: 10/06/24 I am a: Patient What is your living situation today?: I have a steady place to live Within the past 12 months, did the food you bought not last and you didn't have the money to get more?: Never true Within the past 12 months, did you worry whether your food would run out before you got money to buy more?: Never true Do you have trouble paying for medicines?: No Do you have trouble getting transportation to medical appointments?: No Do you have trouble paying your heating and electricity bill?: No Do you have trouble taking care of your child, family member or friend?: No Do you have trouble with day-to-day activities such as bathing, preparing meals, shopping, managing finances, etc.?: No Are you currently unemployed and looking for a job?: No Are you interested in more education?: No Please select the resources that you would like help with: None Currently or been in a relationship where the following occur: No concerns reported THRIVE Score: 0 AUDIT C Alcohol Use Questionnaire (AUDIT-C) 1. How often do you have a drink containing alcohol?: Never Total Score: 0 OLLIE-7 AMB Questionnaire OLLIE-7 Date OLLIE - 7 assessed: 10/06/24 Feeling nervous, anxious, or on edge: 0 = Not at all Not being able to stop or control worryin = Not at all Worrying too much about different things: 0 = Not at all Trouble relaxin = Not at all Being so restless that it is hard to sit still: 0 = Not at all Becoming easily annoyed or irritable: 0 = Not at all Feeling afraid as if something awful might happen: 0 = Not at all Total OLLIE-7 score (0-4 normal; 5-9 mild; 10-14 moderate; 15-21 severe): 0 Source: Developed by Drs. Roman Carroll, Marsha Ruffin, Brian Cash and colleagues, with an educational ramsey from [employer]. OLLIE-7 Assessment Billing OLLIE-7 Assessment Tool: OLLIE-7 Assessment 94777 Review of Systems Const Denies body aches, Denies chills, Denies excessive sweating, Denies fatigue, Denies fever(s) and Denies headache(s) Eyes Denies blurry vision ENT Denies dysphagia, Denies vertigo, Denies dizziness, Denies headache(s), Denies hearing loss and Denies tinnitus Card Denies chest pain, Denies chest pain with activity, Denies syncope, Denies irregular heart rhythm and Denies dyspnea Resp Denies chest congestion, Denies cough, Denies hemoptysis, Denies dyspnea and Denies wheezing GI Denies abdominal pain, Denies melena, Denies hematochezia, Denies coffee ground emesis, Denies dysphagia, Denies diarrhea, Denies nausea and Denies vomiting Denies difficulty urinating, Denies dysuria, Denies urinary frequency, Denies urinary hesitancy and Denies urinary urgency Musc Denies arthralgias, Denies limited range of motion, Denies muscle cramps and Denies muscle weakness Skin/Breast Denies rash and Denies skin ulcer Neuro Denies Abnormal speech present, Denies confusion, Denies vertigo, Denies dizziness, Denies syncope, Denies headache(s), Denies memory loss and Denies seizure-like activity Psych Denies anxiety, Denies confusion, Denies depression, Denies memory loss, Denies panic attacks and Denies paranoia Endo Denies excessive sweating, Denies fatigue, Denies flushing, Denies polydipsia and Denies polyuria Aller/Immun Denies wheezing Physical exam (Primary Care) Vital Signs: Last Vital Signs Temp 97.3 F 05/15/25 14:36 Pulse 64 05/15/25 14:36 BP 120/78 05/15/25 14:36 Pulse Ox 98 05/15/25 14:36 Oxygen Delivery Method Room Air 05/15/25 14:36 BMI result Body Mass Index 39.4 BMI Assessment/Plan discussion: High BMI High, discussed plan: lifestyle, weight reduction, dietary and physical activity Tobacco/Smoking Status: Tobacco use Status Tobacco use date assessed 05/15/25 05/15/25 14:40 Patient Tobacco Use Status Never used Tobacco 05/15/25 14:54 e-Cigarette/Vaping Use Never Used 05/15/25 14:54 PHQ-9: PHQ-9 Score PHQ-9: Total score 0 05/15/25 15:18 Depression Screening Interpretation: Negative Thrive Assessment: Date of Thrive Assessment Date Thrive assessed 10/06/24 05/15/25 14:40 Currently or been in a relationship where the following occur: No concerns reported Const Other: OBESE General: cooperative, comfortable, no acute distress, alert and awake; No confusion Orientation/consciousness: oriented to person, oriented to place, patient oriented x3 and No confusion HENMT Head: Yes normocephalic Ears: external ears normal and TM's normal bilaterally Face and sinus: No sinus tenderness Mouth: Normal oral and palatal mucosa present and tongue normal Teeth and gingiva: dentition normal and gingiva normal Throat: Yes posterior oropharynx normal, Yes tonsils normal and Yes uvula midline Eyes Conjunctivae: conjunctivae normal Sclerae: sclerae normal Pupils: Equal, round and reactive pupils present EOM: EOMs intact bilaterally Direct Ophthalmoscopy: No no photophobia Neck Neck: Yes no lymphadenopathy, No tender and Yes no JVD Thyroid: Thyroid normal Carotids: no bruits Chest Chest palpation & inspection: no tenderness Resp Effort & Inspection: normal respiratory effort, no audible wheezes, not labored and no stridor Auscultation: no crackles, no rales, no rhonchi and no wheezes Cardio Jugular venous distension: no JVD Rate: regular rate, not bradycardic and not tachycardic Rhythm: regular rhythm Bruits: no carotid bruits Peripheral pulses: Peripheral pulses 2+ throughout GI Inspection: Yes normal to inspection, No abdominal wall ecchymosis and No visible herniation Palpation (GI): Soft to palpation, nontender, no guarding, not rigid and No hepatosplenomegaly present Auscultation: normoactive bowel sounds General: Yes no CVA tenderness Back/Spine/Pelvis Back: no CVA tenderness and No back tenderness Cervical Spine: cervical ROM normal Thoracic/Lumbar Spine: thoracic and lumbar spine normal to inspection, straight leg raise negative bilaterally, No thoraco-lumbar ROM limited and No lumbar spinal tenderness Skin Lesions: no lesions Rashes: no rashes Wounds: no wounds Neuro General: oriented to person, oriented to place, patient oriented x3, CN's II-XI intact bilaterally and No confusion Cranial nerves: Yes Equal, round and reactive pupils present and Yes Normal accommodation reflex present Cognition (Neuro): normal cognition Speech: No Abnormal speech present Gait exam (Neuro): Normal gait present Motor exam (neuro): 5/5 motor strength present throughout Extrem Right upper extremity: full ROM; no cyanosis Left upper extremity: full ROM; no cyanosis Right lower extremity: no edema Left lower extremity: no edema Psych Appearance: grossly normal Mental Status: mental status grossly normal Affect: normal affect Attitude: cooperative Thought process: Normal thought process present Office Procedures Flu Questionnaire Does the patient have a severe egg allergy?: No Does the patient have severe life threatening allergies?: No Does the patient have a fever or illness today?: No Has the patient ever had Guillain-[place] Syndrome?: No Has the patient ever had any past reaction to a flu shot?: No Immunizations Fluarix [id number] (PF) 45 mcg (15 mcg x 3)/0.5 mL IM syringe Performing Provider: Bharat Max PA-C Performing Location: [facility] Administered by: Jadyn Chandler RN on 05/15/25 15:17 Dose Route Admin Location Dispensed Lot Number Expiration Date NDC Social Services Designee 0.5 mL IM Left Deltoid 0.5 mL [id number] 01/30/26 [id number] [employer] VIS Given Date VIS Provided VIS Publication Date 05/15/25 Single Vaccine 24 Eligibility Eligibility Date Funding Source Not [facility] Eligible 05/15/25 Private Boostrix Tdap 2.5 Lf unit-8 mcg-5 Lf/0.5 mL intramuscular syringe Performing Provider: Bharat Max PA-C Performing [facility] Administered by: Jadyn Chandler RN on 05/15/25 15:19 Dose Route Admin Location Dispensed Lot Number Expiration Date [place] Social Services Designee 0.5 mL IM Right Deltoid 0.5 mL [id number] 06/01/27 [id number] [employer] Total Dispensed Waste 0.5 mL 0 % VIS Given Date VIS Provided VIS Publication Date 05/15/25 Single Vaccine 21 Eligibility Eligibility Date Funding Source Not [facility] Eligible 05/15/25 Private Coding Level of Care Code Est Pt Prev Care [id number]([id number]) Diagnoses Annual physical exam Z00.00 Class 2 obesity E66.812 Essential hypertension I10 Hypertension type: essential hypertension Additional Codes OLLIE-7 Assessment Billing - OLLIE-7 Assessment Tool: OLLIE-7 Assessment 36005 ([id number]) PHQ-9 - 28172 - PHQ-9 Billing: Yes ([id number]) Assessment & Plan Assessment & Plan (1) Annual physical exam: Code(s): Z00.00 - Encounter for general adult medical examination without abnormal findings Category: Medical Plan: As per HPI (2) Class 2 obesity: Code(s): E66.812 - Obesity, class 2 Category: Medical Plan: Patient having difficulty losing weight, reports he has reduced he has nagging and has been going to the gym multiple times a week. Patient interested in trying medication to help him lose weight thus will start Wellbutrin Will check labs including TSH. (3) HTN (hypertension): Code(s): I10 - Essential (primary) hypertension Category: Medical Qualifiers: Hypertension type: essential hypertension Qualified Code(s): I10 - Essential (primary) hypertension Plan: Patient's blood pressure acceptable today in office. He remains asymptomatic . He reports that home blood pressures 120s to 130 systolic. He reports he feels well He will continue working on lifestyle and dietary modifications. Goal blood pressure is to be below 140/90 Orders: Orders Complete Blood Count no Diff Today I10 - Essential (primary) hypertension Influenza [id number] Immunization Today Z23 - Encounter for immunization Microalbumin, Random (w Creat) Today I10 - Essential (primary) hypertension Comprehensive [place]. Panel Fast Today I10 - Essential (primary) hypertension TSH reflex Free T4 Today E66.812 - Obesity, class 2 TDaP Immunization Today Z23 - Encounter for immunization Medications: New bupropion HCl SR (Wellbutrin SR) 100 mg PO DAILY 30 tabs 1RF 30 days E66.812 - Obesity, class 2 Patient Instructions: Goal: Blood pressure to be below 140/90 Barriers: Adherence to physical activity and healthy eating habits
[2025-05-15 14:36] VITALS: BP 120/78; PULSE 64; TEMP 36.3; O2SAT 98; BMI 39.4
== END 2025-05-15 15:21 | disposition home or self-care (01) ==
LOC: HO.HMCH 14:27
PROVIDERS: PCP Physician Assistant; Visit Provider Physician Assistant
DX: Z00.00 Encounter for general adult medical examination without abnormal findings (principal); E66.812 Obesity, class 2; Z68.39 Body mass index [BMI] 39.0-39.9, adult; I10 Essential (primary) hypertension; Z23 Encounter for immunization

== ENCOUNTER → 2025-05-15 14:26 | Outpatient (BNVA) | payer OTHER, SELFPAY | PROVIDERS: PCP Physician Assistant; Visit Provider Physician Assistant | DX: Z00.00 Encounter for general adult medical examination without abnormal findings (principal); Z23 Encounter for immunization; E66.812 Obesity, class 2; Z68.39 Body mass index [BMI] 39.0-39.9, adult; I10 Essential (primary) hypertension; Z79.899 Other long term (current) drug therapy; Z13.31 Encounter for screening for depression | CPT/HCPCS: 90471; 90472; 90656; 90715; 96127 ==